=== PATIENT | male | born 1980 | race African-American/Black ===

== ENCOUNTER → 2024-02-25 | Outpatient (REF) | payer OTHER | LOC: RAD 15:29 → EDSEX 15:29 | PROVIDERS: ATTEND Internal Medicine | DX: Z77.120 Contact with and (suspected) exposure to mold (toxic) (principal) | CPT/HCPCS: 71046 ==

== ENCOUNTER 2024-11-05 10:57 | Emergency (ER) | payer OTHER ==
[~2024-11-05] VITALS: Ht 177.8 cm; Wt 65.8 kg
[2024-11-05] MEDS ORDERED: DIPHENHYDRAMINE HCL INJ 50 MG/ML VIAL IV ONE (11:30)
[2024-11-05] MEDS: METHYLPREDNISOLONE SOD SUCC 125 MG/2ML VIAL IV ONE (11:46)
[2024-11-05] MEDS: SODIUM CHLORIDE 0.9% 1000ML 1,000 ML IV ONE (11:46)
[2024-11-05 13:20] VITALS: PULSE 55; RESP 18; TEMP 98.8; O2SAT 99
== END 2024-11-05 13:23 | disposition home or self-care (01) ==
LOC: ER 11:16
DX: T63.441A Toxic effect of venom of bees, accidental (unintentional), initial encounter (principal); Y99.0 Civilian activity done for income or pay
CPT/HCPCS: 99283; J2919; J7030